=== PATIENT | male | born 1980 | race Caucasian/White ===

== ENCOUNTER 2018-03-04 21:36 | Emergency (ER) | payer SELFPAY ==
[2018-03-04 21:45] VITALS: BP 123/76
[2018-03-04] MEDS ORDERED: CLINDAMYCIN HCL 150 MG CAPSULE PO ONE (22:57)
--- NOTE | 2018-03-04 23:02 | ER Document Report ---
ED General - General Chief Complaint: Abscess Stated Complaint: ABSCESS LEFT WRIST Time Seen by Provider: 03/04/18 22:52 Notes: Patient is a 37-year-old male who presents with complaints of a possible area of infection on the left wrist. Patient says it started as a small bump. He took a knife and cut the scab off. The last 24 hours he started developed some spreading redness from the area. He denies any fevers. No other swelling. No other complaints at this time. TRAVEL OUTSIDE OF THE [place] IN LAST 30 DAYS: No - Related Data Allergies/Adverse Reactions: No Known Allergies Allergy (Verified 03/04/18 22:41) Past Medical History - Social History Smoking Status: Unknown if Ever Smoked Frequency of alcohol use: None Drug Abuse: None Family History: Reviewed & Not Pertinent Review of Systems - Review of Systems Notes: My Normal Review Basic REVIEW OF SYSTEMS: CONSTITUTIONAL : Denies fever, chills, or sweats. Denies recent illness. SKIN: Area of redness on the left wrist. ALL OTHER SYSTEMS REVIEWED AND NEGATIVE. Physical Exam - Vital signs Vitals: Temp Pulse Resp BP Pulse Ox 98.0 F 62 18 123/76 95 03/04/18 21:44 03/04/18 21:44 03/04/18 21:44 03/04/18 21:44 03/04/18 21:44 - Notes Notes: General Appearance: Well nourished, alert, cooperative, no acute distress, no obvious discomfort. Well-appearing. Vitals: reviewed, See vital signs table. Extremities: good pulses in all extremities, small 2-3 cm circumferential area of redness over the left wrist with just a small scab from where the patient had previously try to cut out what was most likely small infected hair follicle with a knife. No significant swelling. No fluctuance. No abscess on exam at this time. Patient has full function of the wrist and hand. Infection appears to be very superficial. Skin: warm, dry, appropriate color, no rash Neuro: speech clear, oriented x 3, normal affect, responds appropriately to questions. Course - Re-evaluation Re-evalutation: 03/04/18 23:35 Patient has just a small area of developing cellulitis over the left wrist. We will place him on antibiotics. Encouraged to use warm compresses. Encouraged him return to ER if he has spreading redness, swelling, or any concerns that his symptoms are worsening. Dictation of this chart was performed using voice recognition software; therefore, there may be some unintended grammatical errors. - Vital Signs Vital signs: Temp Pulse Resp BP Pulse Ox 98.0 F 62 18 123/76 95 03/04/18 21:44 03/04/18 21:44 03/04/18 21:44 03/04/18 21:44 03/04/18 21:44 Discharge - Discharge Clinical Impression: Cellulitis Qualifiers: Site of cellulitis: extremity Site of cellulitis of extremity: upper extremity Laterality: left Qualified Code(s): L03.114 - Cellulitis of left upper limb Condition: Good Disposition: HOME, SELF-CARE Additional Instructions: Please take the antibiotics as prescribed. Please use warm compresses about twice a day. Please return to the ER if you have worsening swelling, spreading redness, fevers, or have any further concerns. Prescriptions: Clindamycin HCl [Cleocin 150 mg Capsule] 300 mg PO Q6 #56 capsule
== END 2018-03-04 23:17 | disposition home or self-care (01) ==
LOC: ER 21:36
DX: L03.114 Cellulitis of left upper limb (principal); L02.414 Cutaneous abscess of left upper limb
CPT/HCPCS: 99282

== ENCOUNTER 2018-05-04 12:31 | Emergency (ER) | payer OTHER, MEDICAID ==
--- NOTE | 2018-05-04 15:17 | ER Document Report ---
HPI - HPI Time Seen by Provider: 05/04/18 14:24 Pain Level: 2 Notes: Patient is a 38-year-old male who presents to the ER with complaints of sore throat, cough and congestion that have been ongoing for 1 week. Patient reports it is painful when he swallows. He denies any fever or chills. Patient speaking in full and complete sentences. - CONSTITUTIONAL Constitutional: DENIES: Fever, Chills - EENT EENT: REPORTS: Sore Throat - RESPIRATORY Respiratory: REPORTS: Coughing Past Medical History - General Information source: Patient - Social History Smoking Status: Current Every Day Smoker Frequency of alcohol use: Occasional Drug Abuse: None Family History: Reviewed & Not Pertinent Patient has suicidal ideation: No Patient has homicidal ideation: No - Medical History Medical History: Negative Renal/ Medical History: Denies: Hx Peritoneal Dialysis Surgical Hx: Negative - Immunizations Immunizations up to date: Yes Vertical Provider Document - CONSTITUTIONAL Notes: PHYSICAL EXAMINATION: GENERAL: Well-appearing, well-nourished and in no acute distress. HEAD: Atraumatic, normocephalic. EYES: Pupils equal round extraocular movements intact, conjunctiva are normal. ENT: Nares patent with clear rhinorrhea, mild erythema to bilateral tonsils without tonsillar swelling or exudates. NECK: Normal range of motion LUNGS: No respiratory distress, lung sounds clear to auscultation bilaterally Musculoskeletal: Normal range of motion NEUROLOGICAL: Normal speech, normal gait. PSYCH: Normal mood, normal affect. SKIN: Warm, Dry, normal turgor, no rashes or lesions noted. - INFECTION CONTROL TRAVEL OUTSIDE OF THE [place] IN LAST 30 DAYS: No Course - Re-evaluation Re-evalutation: Rapid strep is negative. Patient will be treated for viral upper respiratory illness. - Vital Signs Vital signs: Temp Pulse Resp BP Pulse Ox 98.1 F 88 18 116/72 99 05/04/18 13:06 05/04/18 13:06 05/04/18 13:06 05/04/18 13:06 05/04/18 13:06 Discharge - Discharge Clinical Impression: Sore throat Condition: Stable Disposition: HOME, SELF-CARE Additional Instructions: SORE THROAT: Sore throats may be caused by viruses, bacteria, or fungi. Most are due to a virus, and must get better on their own. Bacterial sore throats, particularly those due to "strep," need treatment with antibiotics. If an antibiotic is prescribed, be sure to take the medication for a full 10 days. Failure to take the antibiotic can result in complications such as rheumatic fever. Sometimes, an injection of antibiotics is given instead of pills or liquid. This single "shot" is equal in effectiveness to the oral medication. To relieve symptoms, take acetaminophen for pain. Sip clear liquids frequently, or eat popsicles or ice chips. Anesthetic sprays or lozenges may help. Make sure the air in the room is not too dry. Avoid using decongestants or antihistamines. Call the doctor if there is no improvement in two days, or if you have difficulty breathing, increasing throat pain, high fever, rash, or frequent vomiting. FOLLOW-UP CARE: If you have been referred to a physician for follow-up care, call the physicians office for an appointment as you were instructed or within the next two days. If you experience worsening or a significant change in your symptoms, notify the physician immediately or return to the Emergency Department at any time for re-evaluation. Your rapid strep was negative today. We will send the swab down for a culture. If it is abnormal some no call you in the next 48-72 hours. Please take ibuprofen 600 mg every 6 hours for pain.
[2018-05-04 15:49] VITALS: BP 117/69
== END 2018-05-04 15:51 | disposition home or self-care (01) ==
LOC: ER 12:31
DX: J02.9 Acute pharyngitis, unspecified (principal); J06.9 Acute upper respiratory infection, unspecified; B97.89 Other viral agents as the cause of diseases classified elsewhere; R05 Cough; J34.89 Other specified disorders of nose and nasal sinuses; F17.200 Nicotine dependence, unspecified, uncomplicated
CPT/HCPCS: 87070; 87880; 99283

== ENCOUNTER 2018-05-10 23:07 | Emergency (ER) | payer OTHER ==
--- NOTE | 2018-05-11 00:44 | ER Document Report ---
ED GI/ - General Chief Complaint: Penile Discharge Stated Complaint: BURNING AND DISCHARGE FROM PENIS Time Seen by Provider: 05/10/18 23:48 Mode of Arrival: Ambulatory Information source: Patient Notes: 38-year-old male presents to ED for complaint of burning frequency urgency with urination and burning with discharge from his penis. He states he has a red area at the end of the penis. He states he had sex with a girl that promised that she was clean but obviously is not. He states the discharge is kind of whitish creamy colored. Patient states he has redness to the end of the penis. There is no redness noted on exam to the penis. There is a white cream-colored discharge noted from the penis. TRAVEL OUTSIDE OF THE [place] IN LAST 30 DAYS: No - HPI Patient complains to provider of: Other - Pain and burning with urination frequency with urination and penile discharge that is cream-colored Onset: Other Timing/Duration: Gradual - Couple days Quality of pain: Burning Severity at maximum: Moderate Severity in ED: Moderate Pain Level: 2 Location: Other - Pain Associated symptoms: Penile discharge, Urinary frequency, Other - Burning with urination Exacerbated by: Other - Urination Relieved by: Denies Similar symptoms previously: No Recently seen / treated by doctor: No - Related Data Allergies/Adverse Reactions: No Known Allergies Allergy (Verified 05/04/18 12:33) Past Medical History - General Information source: Patient - Social History Smoking Status: Current Every Day Smoker Cigarette use (# per day): Yes - Pack per day Chew tobacco use (# tins/day): No Smoking Education Provided: Yes - 4 minutes Frequency of alcohol use: None Drug Abuse: None Occupation: Construction Project Coordinator Lives with: Alone Family History: Reviewed & Not Pertinent Patient has suicidal ideation: No Patient has homicidal ideation: No - Past Medical History Cardiac Medical History: Reports: None Pulmonary Medical History: Reports: None EENT Medical History: Reports: None Neurological Medical History: Reports: None Endocrine Medical History: Reports: None Renal/ Medical History: Reports: None Malignancy Medical History: Reports None GI Medical History: Reports: None Musculoskeletal Medical History: Reports None Skin Medical History: Reports None Psychiatric Medical History: Reports: None Traumatic Medical History: Reports: None Infectious Medical History: Reports: None Surgical Hx: Negative Past Surgical History: Reports: None - Immunizations Immunizations up to date: Yes Review of Systems - Review of Systems Constitutional: No symptoms reported EENT: No symptoms reported Cardiovascular: No symptoms reported Respiratory: No symptoms reported Gastrointestinal: No symptoms reported Genitourinary: Burning, Frequency, Urgency Male Genitourinary: Penile discharge Musculoskeletal: No symptoms reported Skin: No symptoms reported Hematologic/Lymphatic: No symptoms reported Neurological/Psychological: No symptoms reported -: Yes All other systems reviewed and negative Physical Exam - Vital signs Vitals: Temp Pulse Resp BP Pulse Ox 98 F 104 H 18 115/69 100 05/10/18 23:15 05/10/18 23:15 05/10/18 23:15 05/10/18 23:15 05/10/18 23:15 Interpretation: Normal - General General appearance: Appears well, Alert - HEENT Head: Normocephalic, Atraumatic Eyes: Normal Pupils: PERRL - Respiratory Respiratory status: No respiratory distress Chest status: Nontender Breath sounds: Normal Chest palpation: Normal - Cardiovascular Rhythm: Regular Heart sounds: Normal auscultation Murmur: No - Abdominal Inspection: Normal Distension: No distension Bowel sounds: Normal Tenderness: Nontender Organomegaly: No organomegaly - Genitourinary Inspection: Penile discharge Tenderness: Nontender Cremasteric reflex: Normal Scrotum: Normal - Back Back: Normal, Nontender - Extremities General upper extremity: Normal inspection, Nontender, Normal color, Normal ROM, Normal temperature General lower extremity: Normal inspection, Nontender, Normal color, Normal ROM, Normal temperature, Normal weight bearing. No: Ace's sign - Neurological Neuro grossly intact: Yes Cognition: Normal Orientation: AAOx4 Octavio Coma Scale Eye Opening: Spontaneous Wilcox Coma Scale Verbal: Oriented Octavio Coma Scale Motor: Obeys Commands Octavio Coma Scale Total: 15 Speech: Normal Motor strength normal: LUE, RUE, LLE, RLE Sensory: Normal - Psychological Associated symptoms: Normal affect, Normal mood - Skin Skin Temperature: Warm Skin Moisture: Dry Skin Color: Normal Course - Re-evaluation Re-evalutation: 05/11/18 01:33 Urinalysis came back with a UTI. Patient was treated with Rocephin 1 g IM. He also had penile discharge and a GC chlamydia tests were sent. He was treated with azithromycin 1 g in the emergency room as he is not going to wait for the results. He was instructed to call [phone] tomorrow for the results of the GC and chlamydia. He did verbalize understanding of this. Patient was instructed to increase his p.o. fluid intake for his urinary tract infection. He was discharged home with a prescription for Keflex. - Vital Signs Vital signs: Temp Pulse Resp BP Pulse Ox 98 F 104 H 18 115/69 100 05/10/18 23:15 05/10/18 23:15 05/10/18 23:15 05/10/18 23:15 05/10/18 23:15 - Laboratory Laboratory results interpreted by me: 05/11/18 00:20 Urine Ketones TRACE H Urine Urobilinogen 4.0 H Ur Leukocyte Esterase MODERATE H Discharge - Discharge Clinical Impression: Abnormal penile discharge, without blood UTI (urinary tract infection) Qualifiers: Urinary tract infection type: site unspecified Hematuria presence: without hem aturia Qualified Code(s): N39.0 - Urinary tract infection, site not specified Condition: Stable Disposition: HOME, SELF-CARE Instructions: Family Physicians / Practices Additional Instructions: URINARY TRACT INFECTION: Your evaluation indicates that you have a urinary tract infection. This is due to germs growing in the bladder. This is a common problem. This infection usually responds quickly to antibiotics. Your antibiotic should be taken exactly as prescribed. Drink plenty of fluids -- three to four quarts a day. Occasionally, a bladder anesthetic will be prescribed to help stop the feeling of urgency until the antibiotic has a chance to clear the infection. This may cause your urine to be dark orange. Certain urine infections require a culture. If the doctor obtained a culture, the results will be back in two days. You should call to see if a change in treatment is needed. A repeat urinalysis after you finish treatment is often recommended. The physician will let you know if further testing is required. Call the doctor if you develop fever, chills, flank pain, inability to urinate, or blood in the urine. Urethritis You have urethritis, an infection of the urethra. The usual symptoms are pain on urination and discharge. The infection is often caused by gonorrhea or chlamydia. Treatment is antibiotics. In addition, any sexual contacts should be evaluated by a physician as soon as possible. As this infection can be transmitted sexually, refrain from sexual activity until the infection is confirmed as healed by your physician. If gonorrhea or chlamydia is found on culture, the health department must be notified. Call the doctor at once if you develop difficulty passing your urine, high fever, rash, joint swelling, or other new symptoms. CEPHALOSPORINS: An antibiotic of the cephalosporin class has been prescribed. This type of antibiotic covers a wide variety of infections, including those of the skin, lungs, middle ear, and urinary tract. This antibiotic is somewhat similar to the penicillin family. In rare cases, a person who is allergic to penicillin will also be allergic to this medication. If you have had a severe allergic reaction to penicillin, and have not taken this antibiotic since that time, notify your doctor. Antibiotics which cover many germs ("broad spectrum" antibiotics) are more likely to cause diarrhea or "yeast" infections. Women prone to vaginal yeast problems may suffer an attack after taking this antibiotic. In infants, oral thrush (white spots "stuck" on the cheek) or yeast diaper rash may result. See your doctor if these problems occur. Call the doctor at once if you develop hives, itching, shortness of breath, or lightheadedness. AZITHROMYCIN: Azithromycin (Zithromax) is a broad spectrum antibiotic in the same class as erythromycin. It can treat a variety of bacterial infections, but is most frequently used for respiratory infections. Azithromycin is extremely long-lasting. It accumulates in body tissues and continues to kill bacteria for many days. In order to improve absorption, Azithromycin should be taken at least one hour before or two hours after a meal. It does not have the same strong tendency to upset the stomach as erythromycin and is usually very well tolerated. Patients who have had a rash or other true allergic reactions to erythromycin should not take this medication. Call if you develop gastrointestinal distress, severe diarrhea, rash, hives, itching, or shortness of breath. CEPHALEXIN: The antibiotic you've been prescribed is a member of the cephalosporin class. This type of antibiotic covers a wide variety of infections, including those of the skin, lungs, and urinary tract. It's useful for staph infections. This antibiotic is slightly similar to the penicillin family. In rare cases, a person who is allergic to penicillin will also be allergic to this medication. If you have had a severe allergic reaction to penicillin, and have not taken this antibiotic since that time, notify your doctor. Antibiotics which cover many germs ("broad spectrum" antibiotics) are more likely to cause diarrhea or "yeast" infections. Women prone to vaginal yeast problems may suffer an attack after taking this antibiotic. In infants, oral thrush (white spots "stuck" on the cheek) or yeast diaper rash may result. See your doctor if these problems occur. Call at once if you develop itching, hives, shortness of breath, or lightheadedness. FOLLOW-UP CARE: If you have been referred to a physician for follow-up care, call the physicians office for an appointment as you were instructed or within the next two days. If you experience worsening or a significant change in your symptoms, notify the physician immediately or return to the Emergency Department at any time for re-evaluation. Call tomorrow between 2 PM and 2 AM [phone] for the results of your gonorrhea and Chlamydia test. I will be here at those times asked for Liam Prescriptions: Cephalexin Monohydrate [Keflex 500 mg Capsule] 500 mg PO Q6H 5 Days capsule Forms: Return to Work
[2018-05-11 01:05] LABS: APPEARANCE,URINE SLIGHTLY-CLOUDY; BILIRUBIN,URINE NEGATIVE (NEGATIVE); COLOR,URINE YELLOW; GLUCOSE, URINE NEGATIVE (NEGATIVE); KETONES,URINE TRACE mg/dL (NEGATIVE); LEUKOCYTE ESTERASE,URINE MODERATE (NEGATIVE); NITRITE,URINE NEGATIVE (NEGATIVE); PROTEIN,URINE NEGATIVE (NEGATIVE); URINE SPECIFIC GRAVITY 1.021
[2018-05-11] MEDS ORDERED: AZITHROMYCIN 250 MG TABLET PO ONE (01:05)
[2018-05-11] MEDS ORDERED: LIDOCAINE 1% INJ-PF (10 MG/ML) 30 ML SDV INJ ONE (01:05)
[2018-05-11] MEDS ORDERED: CEFTRIAXONE INJ 250 MG VIAL IM ONE (01:05)
[2018-05-11] MEDS ORDERED: CEFTRIAXONE INJ 1000 MG VIAL IM ONE (01:17)
[2018-05-11 02:01] VITALS: BP 120/70
[2018-05-11 02:31] LABS: CHLAM PCR NOT DETECTED (NOT DETECT); GON PCR DETECTED (NOT DETECT)
== END 2018-05-11 01:59 | disposition home or self-care (01) ==
LOC: ER 23:07
DX: N39.0 Urinary tract infection, site not specified (principal); R36.9 Urethral discharge, unspecified; R35.0 Frequency of micturition; R39.15 Urgency of urination; F17.210 Nicotine dependence, cigarettes, uncomplicated
CPT/HCPCS: 99283; 96372; 87086; 81001; 87491; 87591; J3490; J0696